=== PATIENT | female | born 1955 | race Caucasian/White ===

== ENCOUNTER 2016-12-30 07:03 | Emergency (ER) | payer BC, OTHER ==
[2016-12-30 07:20] VITALS: TEMP 98; BMI 41.9
[2016-12-30] MEDS ORDERED: ONDANSETRON 4 MG/2 ML VIAL IVPB ONE (07:26)
[2016-12-30] MEDS ORDERED: SODIUM CHLORIDE 500 ML IV STA (07:26)
[2016-12-30] MEDS ORDERED: morphine CARPU-JECT 4 MG/1 ML DISP.SYRIN IVPUSH ONE (07:26)
[2016-12-30] MEDS ORDERED: MAG HYDROX/AL HYDROX/SIMETH 30 ML UNIT-DOSE CUP PO ONE ×2 (07:33→10:58)
[2016-12-30] MEDS ORDERED: PANTOPRAZOLE SODIUM 40 MG in SODIUM CHLORIDE 100 ML IVPB ONE (07:33)
[2016-12-30] MEDS ORDERED: FAMOTIDINE 20 MG/50 ML IVPB 50 ML IVPB ONE ×2 (07:33→07:55)
[2016-12-30] MEDS ORDERED: ONDANSETRON 4 MG/2 ML VIAL ONE (07:35)
[2016-12-30] MEDS ORDERED: morphine CARPU-JECT 4 MG/1 ML DISP.SYRIN ONE (07:35)
[2016-12-30] MEDS ORDERED: PANTOPRAZOLE SODIUM 100 ML IVPB ONE (07:54)
[2016-12-30] MEDS ORDERED: MAG HYDROX/AL HYDROX/SIMETH 30 ML UNIT-DOSE CUP ONE ×2 (07:55→11:28)
[2016-12-30 07:57] LABS: BASOPHIL 1.1 % (0-2.0); EOSINOPHIL 0.7 % (0-4.5); MCH 30.2 pg (25.7-33.7); MCHC 33.7 g/dl (32.0-36.0); MEAN CELL VOLUME 89.4 fl (80-96); MEAN PLT VOLUME 8.2 fl (7.5-11.1); NEUTROPHILS 75.9 % (42.8-82.8); PLATELET COUNT 258 K/MM3 (134-434); RDW 15.4 % (11.6-15.6); WHITE BLOOD COUNT 13.7 K/mm3 (4.0-10.0)
--- NOTE | 2016-12-30 08:07 | PDOC ---
History of Present Illness - General Chief Complaint: Chest Pain Stated Complaint: CHEST DISCOMFORT Time Seen by Provider: 12/30/16 07:17 History Source: Patient Exam Limitations: No Limitations - History of Present Illness Initial Comments: 12/30/16 07:36 61F with no significant medical history here today complaining of epigastric pain for the past 8 hours with associated nausea and vomiting. The pain radiates to the middle of the chest and to the back. She denies blood in the vomit and coffee ground emesis. She thinks that she drank some almond milk that went bad because her drank the same almond milk two days ago and it made his stomach upset. She denies fevers, chills, shortness of breath and dysuria. Patient endorses smoking, refuses to quantify. Denies drinking and illicits. Past History - Past Medical History Allergies/Adverse Reactions: Allergies Allergy/AdvReac Type Severity Reaction Status Date / Time No Known Allergies Allergy Verified 12/30/16 07:17 Home Medications: Ambulatory Orders NK [No Known Home Medication] 12/30/16 Other medical history: none - Surgical History Abdominal Surgery: Yes (myomectomy) - Psycho/Social/Smoking Cessation Hx Anxiety: No Suicidal Ideation: No Smoking History: Current every day smoker Have you smoked in the past 12 months: Yes Number of Cigarettes Smoked Daily: 6 Information on smoking cessation initiated: Yes 'Breaking Loose' booklet given: 12/30/16 Hx Alcohol Use: No Drug/Substance Use Hx: No Substance Use Type: None Review of Systems - Review of Systems Comments:: 12/30/16 09:07 GENERAL/CONSTITUTIONAL: No fever or chills. No weakness. HEAD, EYES, EARS, NOSE AND THROAT: No change in vision. No sore throat. CARDIOVASCULAR: No shortness of breath, pain in middle of chest that radiates from epigastrium RESPIRATORY: No cough, wheezing, or hemoptysis. GASTROINTESTINAL: Positive for nausea and vomiting. Negative for diarrhea or constipation. GENITOURINARY: No dysuria, frequency, or change in urination. SKIN: No rash NEUROLOGIC: No headache, vertigo, loss of consciousness, or change in strength/ sensation. HEMATOLOGIC/LYMPHATIC: No anemia, easy bleeding, or history of blood clots. ALLERGIC/IMMUNOLOGIC: No hives or skin allergy. *Physical Exam - Vital Signs Last Vital Signs Temp Pulse Resp BP Pulse Ox 98.0 F 56 L 18 143/92 93 L 12/30/16 07:17 12/30/16 07:17 12/30/16 07:17 12/30/16 07:17 12/30/16 07:17 - Physical Exam Comments: 12/30/16 09:09 GENERAL: Awake, alert, and fully oriented, in moderate distress HEAD: No signs of trauma, normocephalic, atraumatic EYES: PERRLA, EOMI, sclera anicteric, conjunctiva clear ENT: Auricles normal inspection, hearing grossly normal, nares patent, oropharynx clear without exudates. Dry mucosa NECK: Normal ROM, supple, no lymphadenopathy, JVD, or masses LUNGS: No distress, speaks full sentences, clear to auscultation bilaterally HEART: Regular rate and rhythm, normal S1 and S2, no murmurs, rubs or gallops, peripheral pulses normal and equal bilaterally. ABDOMEN: Soft, tender in the epigastric region, negative chnu sign. No guarding, no rebound. No masses EXTREMITIES: Normal inspection, Normal range of motion, no edema. No clubbing or cyanosis. NEUROLOGICAL: Cranial nerves II through XII grossly intact. Normal speech, no focal sensorimotor deficits SKIN: Warm, Dry, normal turgor, no rashes or lesions noted. ED Treatment Course - LABORATORY CBC & Chemistry Diagram: 12/30/16 07:35 12/30/16 07:35 Medical Decision Making - Medical Decision Making 12/30/16 09:14 61F with no significant medical history here today with epigastric pain. Vital signs stable. DDx includes, but is not limited to: pancreatitis, gastritis, gastroenteritis, acs. Will workup with labs, ua, chest x-ray, ecg. ECG shows sinus bradycardia, normal axis, no t-wave inversions, no st elevations. 12/30/16 09:17 Laboratory Tests 12/30/16 12/30/16 12/30/16 07:33 07:35 07:35 WBC 13.7 H Hgb 17.4 H Hct 51.4 H Plt Count 258 Troponin I < 0.02 Lipase 148 CBC shows white count of 13.7. Trop neg, lipase neg. UA pending. 12/30/16 09:21 CXR shows enlarged heart w/ atlectasis vs infiltrate in lung bases. 12/30/16 10:48 Ultrasound shows cholelithiasis, but no wall thickening or dilation of ducts. 12/30/16 12:54 Trop negative. Will discharge home. Return precautions given. Patient has improved and is ambulatory at discharge. *DC/Admit/Observation/Transfer Diagnosis at time of Disposition: Epigastric pain - Discharge Dispostion Disposition: HOME Condition at time of disposition: Improved Admit: No - Patient Instructions Printed Discharge Instructions: DI for Gallstones
[2016-12-30 08:11] LABS: INR 0.99 (0.82-1.09); PROTHROMBIN TIME (PATIENT) 10.9 SEC (9.98-11.88)
[2016-12-30 08:22] LABS: ALBUMIN 3.9 g/dl (3.4-5.0); ALK PHOS 98 U/L (45-117); ANION GAP 7 (8-16); BILIRUBIN,TOTAL 0.4 mg/dL (0.2-1.0); CO2 26 mmol/L (21-32); CREATININE 0.9 mg/dL (0.55-1.02); GLUCOSE,RANDOM 131 mg/dL (74-106); SGOT/AST 19 U/L (15-37); SGPT/ALT 36 U/L (12-78); TOT PROT 7.3 g/dl (6.4-8.2)
[2016-12-30 08:22] LABS: LDH 192 U/L (84-246)
[2016-12-30 08:25] LABS: CPK 59 IU/L (26-192); TROPONIN I < 0.02 ng/ml (0.00-0.05)
--- NOTE | 2016-12-30 10:40 | PDOC ---
Attending Attestation - Resident Resident Name: Juan Wilhelm - ED Attending Attestation I have performed the following: I have examined & evaluated the patient, The case was reviewed & discussed with the resident, I agree w/resident's findings & plan, Exceptions are as noted - HPI HPI: 12/30/16 11:08 61 F with no PMH presents to ER with 1 day of epigastric pain, nausea, and vomiting. Pt believes she drank spoiled almond milk last night. In the middle of the night, she began to have severe epigastric burning and nausea. She reports that she vomited once but denies any diarrhea. Denies F/C. Endorses burning going up her chest but denies SOB. Denies radiation of pain towards back. Denies lower abdominal pain. Denies flank pain. Denies dysuria. - Physicial Exam PE: 12/30/16 11:16 "GENERAL: Awake, alert, and fully oriented, in no acute distress HEAD: No signs of trauma EYES: PERRLA, EOMI, sclera anicteric, conjunctiva clear ENT: Auricles normal inspection, hearing grossly normal, nares patent, oropharynx clear without exudates. Moist mucosa NECK: Nontender, no stepoffs, Normal ROM, supple, no lymphadenopathy, JVD, or masses LUNGS: Breath sounds equal, clear to auscultation bilaterally. No wheezes, and no crackles HEART: Regular rate and rhythm, normal S1 and S2, no murmurs, rubs or gallops ABDOMEN: Soft, mild epigastric TTP, normoactive bowel sounds. No guarding, no rebound. No pulsatile masses EXTREMITIES: Normal range of motion, no edema. Equal pulses bilaterally. No clubbing or cyanosis. No cords, erythema, or tenderness NEUROLOGICAL: Cranial nerves II through XII intact. 5/5 strength and sensation in all extremities, Normal speech, normal gait SKIN: Warm, Dry, normal turgor, no rashes or lesions noted. " - Medical Decision Making 12/30/16 11:18 61 F with epigastric pain +N/V. Likely gastritis vs pancreatitis. ACS unlikely given nonischemic EKG. Dissection unlikely given equal pulses and no tearing pain to the back. - Labs, GI cocktail - US - Serial trops
[2016-12-30 12:46] LABS: CPK 54 IU/L (26-192); TROPONIN I < 0.02 ng/ml (0.00-0.05)
[2016-12-30 12:48] VITALS: BP 136/77; PULSE 73
--- NOTE | 2016-12-31 14:02 | EKG ---
Test Reason : Blood Pressure : / mmHG Vent. Rate : 055 BPM Atrial Rate : 055 BPM P-R Int : 168 ms QRS Dur : 080 ms QT Int : 432 ms P-R-T Axes : 052 054 054 degrees QTc Int : 413 ms SINUS BRADYCARDIA NO PREVIOUS ECGS AVAILABLE Confirmed by DANY JACOBO MD ([id number]) on 12/31/2016 2:01:45 PM Referred By: Confirmed By:DANY JACOBO MD
== END 2016-12-30 13:24 | disposition home or self-care (01) ==
LOC: JER 07:03
DX: K80.20 Calculus of gallbladder without cholecystitis without obstruction (principal)
CPT/HCPCS: 36415; 71010-TC; 76705-TC; 80053; 83615; 83690; 84484; 85025; 85610; 93005; 93010; 99285-25